=== PATIENT | female | born 1975 | race Caucasian/White ===

== ENCOUNTER 2017-07-27 20:13 | Emergency (ER) | payer OTHER ==
--- NOTE | 2017-07-27 20:17 | PDOC ---
History of Present Illness - General History Source: Patient Exam Limitations: No Limitations - History of Present Illness Initial Comments: 07/27/17 20:33 The patient is a 42 year old female, with no significant past medical history, who presents to the emergency department with, a laceration to her left ear. The patient reports gardening today when she stepped on a rake and it hit her left ear. She was initially able to stop the bleeding, however, reports whenever she touches her ear it recommences. Her last tetanus shot was 5 years ago. She denies any recent fevers, chills, headache or dizziness. She denies any recent nausea, vomit, diarrhea or constipation. She denies any recent chest pain or shortness of breath. She denies any recent dysuria, frequency, urgency or hematuria. PAST MEDICAL HISTORY: no significant history PAST SURGICAL HISTORY: no significant history FAMILY HISTORY: no pertinent history SOCIAL HISTORY: Pt lives with family and is employed. MEDICATIONS: reviewed ALLERGIES: As per nursing notes General: No fevers or chills, no weakness, no weight loss +HEENT: Laceration to the left ear. No change in vision. No sore throat,. No ear pain CardioVascular: No chest pain or shortness of breath Respiratory:No cough, or wheezing. Gastrointestinal: no nausea, vomiting, diarrhea or constipation, No rectal bleeding Genitourinary: No dysuria, hematuria, or frequency Musculoskeletal: No joint or muscle pain or swelling Neurologic: No headache, vertigo, dizziness or loss of consciousness Psychiatric: nor depression Skin: No rashes or easy bruising Endocrine: no increased thirst or abnormal weight change Allergic: no skin or latex allergy All other systems reviewed and normal GENERAL: The patient is awake, alert, and fully oriented, in no acute distress. HEAD: Normal with no signs of trauma. EYES: Pupils equal, round and reactive to light, extraocular movements intact, sclera anicteric, conjunctiva clear. EARS: Superficial laceration where the earlobe joins the face approximately 1/ 2cm in size. EXTREMITIES: Normal range of motion, no edema. NEUROLOGICAL: Normal speech, normal gait. PSYCH: Normal mood, normal affect. SKIN: Warm, Dry, normal turgor, no rashes or lesions noted. <Daya Nichols - Last Filed: 07/27/17 21:07> - General History Source: Patient Exam Limitations: No Limitations - History of Present Illness Initial Comments: A portion of this note was documented by scribe services under my direction. I have reviewed the details of the note, within reason, and agree with the documentation. The case summary and management plan written by me. Assessment and plan: This is a 42-year-old female who comes in with a superficial laceration of her earlobe where it joins the face. Laceration was cleaned and closed with Dermabond patient tolerated well patient discharged home.. Procedure note laceration repair with Dermabond Laceration was cleaned with normal saline and peroxide and closed with Dermabond 07/27/17 21:10 <Sohan Cortes I - Last Filed: 07/27/17 21:11> - General Chief Complaint: Injury Stated Complaint: LACERATION TO LEFT EAR Time Seen by Provider: 07/27/17 20:14 Past History <Daya Nichols - Last Filed: 07/27/17 21:07> <Sohan Cortes I - Last Filed: 07/27/17 21:11> - Past Medical History Allergies/Adverse Reactions: Allergies Allergy/AdvReac Type Severity Reaction Status Date / Time No Known Allergies Allergy Verified 07/27/17 20:20 Home Medications: Ambulatory Orders Albuterol Sulfate [Proventil HFA Inhaler -] 1 - 2 inh PO TID 07/27/17 *Physical Exam - Vital Signs Last Vital Signs Temp Pulse Resp BP Pulse Ox 98 F 86 16 136/94 100 07/27/17 20:22 07/27/17 20:22 07/27/17 20:22 07/27/17 20:22 07/27/17 20:22 <Daya Nichols - Last Filed: 07/27/17 21:07> *DC/Admit/Observation/Transfer - Attestations Scribe Attestion: 07/27/17 20:33 Documentation prepared by Daya Nichols, acting as medical collections representative for Sohan Cortes MD. <Daya Nichols - Last Filed: 07/27/17 21:07> - Discharge Dispostion Decision to Admit order: No <Sohan Cortes I - Last Filed: 07/27/17 21:11> Diagnosis at time of Disposition: Ear lobe laceration Qualifiers: Encounter type: initial encounter Laterality: left Qualified Code(s): S01.312A - Laceration without foreign body of left ear, initial encounter - Discharge Dispostion Disposition: HOME Condition at time of disposition: Stable - Patient Instructions Printed Discharge Instructions: DI for Laceration Repair With Dermabond Additional Instructions: Read over and follow the Dermabond instructions most important part is keep it dry for 72 hours and do not use any petroleum based products on it such as bacitracin or ointments. Return to the emergency department immediately with ANY new, persistent or worsening symptoms. Continue any medications as previously prescribed by your physician. You should follow up with your primary doctor as soon as possible regarding today's emergency department visit. . Please make sure your doctor reviews the results of your emergency evaluation. Thank you for coming to the Emergency Department today for your care. It was a pleasure to see you today. Please note that your evaluation is INCOMPLETE until you follow-up with your doctor.
[2017-07-27 20:30] VITALS: BP 136/94; PULSE 86; TEMP 98; BMI 27.2
== END 2017-07-27 20:37 | disposition home or self-care (01) ==
LOC: FER 20:13
PROC: 0HQ3XZZ Repair Left Ear Skin, External Approach (ICD-10-PCS; principal; 2017-07-27)
DX: S01.312A Laceration without foreign body of left ear, initial encounter (principal); W20.8XXA Other cause of strike by thrown, projected or falling object, initial encounter; Y93.H2 Activity, gardening and landscaping; Y92.89 Other specified places as the place of occurrence of the external cause
CPT/HCPCS: 99281-25

== ENCOUNTER 2023-03-29 11:26 | Emergency (ER) | payer BC, OTHER ==
[2023-03-29] MEDS ORDERED: DIPHTH,PERTUSS(ACELL),TET 0.5 ML DISP.SYRIN IM ONE ×2 (11:34→11:45)
[2023-03-29 11:44] VITALS: BP 142/92; PULSE 98; RESP 18; TEMP 98.9; BMI 27.8
== END 2023-03-29 11:55 | disposition home or self-care (01) ==
LOC: FER 11:26
PROC: 0HQGXZZ Repair Left Hand Skin, External Approach (ICD-10-PCS; principal; 2023-03-29)
PROC: 3E0234Z Introduction of Serum, Toxoid and Vaccine into Muscle, Percutaneous Approach (ICD-10-PCS; 2023-03-29)
DX: S61.412A Laceration without foreign body of left hand, initial encounter (principal); W26.8XXA Contact with other sharp object(s), not elsewhere classified, initial encounter; Y93.G1 Activity, food preparation and clean up
CPT/HCPCS: 90715; 99282-25